=== PATIENT | female | born 1965 | race Asian ===

== ENCOUNTER → 2020-06-19 | Day surgery (SDC) | payer OTHER ==
[2020-06-17 09:23] LABS: COVID AG,FIA SOURCE NASOPHARYNGEAL
[~2020-06-19] MED LIST: HYDR200T4 PO; ISOS30TA6 PO; KETOROLAC TROMETHAMINE 0.5% 5 ML OPHTHALMIC SOLUTION OD SCH; METO-391 PO; MONT10TA97 PO; MOXIFLOXACIN HCL 0.5% 3 ML OPHTHALMIC SOLUTION OD SCH; NAPR-1025 PO; OMEP20 PO; PHENYLEPHRINE HCL 2.5% 2 ML OPHTHALMIC SOLUTION OD SCH; RINGERS SOLUTION,LACTATED 500 ML IV ONE; TROPICAMIDE 1% 2 ML OPHTHALMIC SOLUTION OD SCH
== END | disposition home or self-care (01) ==
LOC: SDS 07:30
PROVIDERS: ATTEND Ophthalmology
DX: H26.8 Other specified cataract (principal); Z53.8 Procedure and treatment not carried out for other reasons
CPT/HCPCS: 87426; 93005; C9803